=== PATIENT | female | born 1975 | race American Indian/Alaskan Native ===

== ENCOUNTER 2017-12-16 12:59 | Emergency (ER) | payer OTHER ==
[2017-12-16] MEDS ORDERED: MOTRIN PO ONE (18:06)
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
[2017-12-16 19:49] VITALS: BP 137/86
== END 2017-12-16 19:48 | disposition home or self-care (01) ==
LOC: ED 12:59
DX: S63.632A Sprain of interphalangeal joint of right middle finger, initial encounter (principal); M54.9 Dorsalgia, unspecified; M25.512 Pain in left shoulder; M25.511 Pain in right shoulder; F17.200 Nicotine dependence, unspecified, uncomplicated; V89.2XXA Person injured in unspecified motor-vehicle accident, traffic, initial encounter; Y93.89 Activity, other specified; Y99.8 Other external cause status; Y92.410 Unspecified street and highway as the place of occurrence of the external cause
CPT/HCPCS: 99282